=== PATIENT | male | born 1955 | race Caucasian/White ===

== ENCOUNTER 2018-07-08 10:22 | Emergency (ER) | payer OTHER ==
[2018-07-08 10:32] VITALS: BP 157/83; PULSE 90; TEMP 98.2; BMI 30.4
--- NOTE | 2018-07-08 11:56 | PDOC ---
History of Present Illness - General Chief Complaint: Injury Stated Complaint: LT HAND LACERATION Time Seen by Provider: 07/08/18 11:23 History Source: Patient Exam Limitations: No Limitations - History of Present Illness Initial Comments: 07/08/18 11:37 62-year-old male presents to the emergency room status post injury to his left hand. Patient was helping a friend move furniture when it was jammed between the door frame and the refrigerator causing a laceration to the palm of his left hand. Patient denies decreased range of motion, sensory changes distal of injury, or history of diabetes. Patient states last tetanus was one year ago. Timing/Duration: 1/2 hour Severity: mild Associated Symptoms: reports: denies symptoms Past History - Travel Traveled outside of the country in the last 30 days: No - Past Medical History Allergies/Adverse Reactions: Allergies Allergy/AdvReac Type Severity Reaction Status Date / Time No Known Allergies Allergy Verified 07/08/18 10:32 Home Medications: Ambulatory Orders Cephalexin [Keflex] 500 mg PO BID #14 capsule 07/08/18 COPD: No HTN: Yes Hypercholesterolemia: Yes - Immunization History Immunization Up to Date: Yes - Suicide/Smoking/Psychosocial Hx Smoking History: Never smoked Patient Lives Alone: No Lives with/in: spouse/SO Review of Systems - Review of Systems Able to Perform ROS?: Yes Constitutional: No: Symptoms Reported Musculoskeletal: No: Symptoms Reported Integumentary: Yes: See HPI Neurological: No: Numbness, Paresthesia Hematologic/Lymphatic: No: Symptoms Reported *Physical Exam - Vital Signs Last Vital Signs Temp Pulse Resp BP Pulse Ox 98.2 F 90 18 157/83 99 07/08/18 10:28 07/08/18 10:28 07/08/18 10:28 07/08/18 10:28 07/08/18 10:28 - Physical Exam General Appearance: Yes: Nourished, Appropriately Dressed. No: Apparent Distress Extremity: positive: Normal Capillary Refill Integumentary: positive: Other (1 x 2 cm open wound to palmar aspect of left hand at the base of 2 nd digit. surrounding skin intact) Neurologic: positive: Motor Strength 5/5 (left hand grasp) Procedures - Laceration/Wound Repair Left Hand Wound Length: to 2.5 cm Wound Explored: no foreign body present Wound's Depth, Shape: superficial Irrigated w/ Saline: Yes Betadine Prep: Yes Sterile Dressing Applied: Yes (w/ surgicell) ED Treatment Course - RADIOLOGY Radiology Studies Ordered: Category Date Time Status FINGER(S) LEFT [RAD] Stat Radiology 07/08/18 11:27 Ordered Medical Decision Making - Medical Decision Making 07/08/18 12:08 CC: left hand injury Exam: open wound to left hand Plan: xray and surgicel applied. antibiotic ordered. *DC/Admit/Observation/Transfer Diagnosis at time of Disposition: Open wound of left hand - Discharge Dispostion Disposition: HOME Condition at time of disposition: Good - Prescriptions Prescriptions: Cephalexin [Keflex] 500 mg PO BID #14 capsule - Referrals - Patient Instructions Printed Discharge Instructions: Skin Wound Additional Instructions: Please change bandage every 48 hours. Take antibiotic as ordered. Observe for infection (redness, swelling or drainage) - Post Discharge Activity
== END 2018-07-08 12:15 | disposition home or self-care (01) ==
LOC: JERFT 10:22
PROC: 0HQGXZZ Repair Left Hand Skin, External Approach (ICD-10-PCS; principal; 2018-07-08)
DX: S61.412A Laceration without foreign body of left hand, initial encounter (principal); W23.0XXA Caught, crushed, jammed, or pinched between moving objects, initial encounter; Y93.E6 Activity, residential relocation; Y92.098 Other place in other non-institutional residence as the place of occurrence of the external cause; Y99.8 Other external cause status; I10 Essential (primary) hypertension; E78.00 Pure hypercholesterolemia, unspecified
CPT/HCPCS: 12002-25; 73140-TC-LT-FY; 99281-25